=== PATIENT | male | born 1945 | race Caucasian/White ===

== ENCOUNTER → 2018-05-29 | Outpatient (CLI) | payer MEDICARE, BC ==
[~2018-05-29] MED LIST: ALLERGY RELIEF25 M2 PO; AUGMENTIN XR 101 TER PO; RT ADVAIR 228 DISKUS IH
== END ==
LOC: COL.RAD 07:53
DX: J32.9 Chronic sinusitis, unspecified (principal); Z98.890 Other specified postprocedural states

== ENCOUNTER → 2018-09-08 | Outpatient (CLI) | payer MEDICARE, BC | LOC: COL.PUL 07:54 | DX: R06.09 Other forms of dyspnea (principal) ==

== ENCOUNTER → 2018-09-17 | Outpatient (CLI) | payer MEDICARE, BC ==
[~2018-09-17] VITALS: Ht 174 cm; Wt 132.5 kg
[~2018-09-17] MED LIST changes: +ATROVENT INHALE14 GM IH; +PRINIVIL20 MG PO
[2018-09-17 08:58] VITALS: BP 158/75; PULSE 86
[2018-09-17 10:20] VITALS: BP 147/87; PULSE 91
[2018-09-17 10:33] LABS: PLEURAL FLUID RBC 159000 /mm3 (0-0); PLEURAL FLUID WBC 16825 /mm3
[2018-09-17 10:41] LABS: GLUCOSE,PLEURAL FLUID 91 mg/dL; TOTAL PROTEIN,PLEURAL FLUID 5.4 gm/dL
--- NOTE | 2018-09-17 10:44 | NUR ---
PT WAS TAKEN OUT AT 1036 AMBULATORY TO PO. STATES THAT HIS LUNG IS SOMEWHAT TENDER WHEN HE COUGHS. PT INSTRUCTED TO FOLLOW HIS DC INSTRUCTIONS. AKSED PT IF HE NEEDED ME TO GO OVER THE INSTRAUCTIONS AGAIN. HE STATES NO.
[2018-09-17 11:01] LABS: PLEURAL FLUID COLOR RED
[2018-09-17 11:02] LABS: PLEURAL FLUID APPEARANCE CLOUDY
== END ==
LOC: COL.RAD 08:41
PROVIDERS: Internal Medicine Pulmonary Disease
DX: J90 Pleural effusion, not elsewhere classified (principal)

== ENCOUNTER 2019-05-24 20:10 | Emergency (ER) | payer MEDICARE, BC ==
[~2019-05-24] VITALS: Ht 172.7 cm; Wt 136.4 kg
[2019-05-24 20:15] VITALS: TEMP 98.4
[2019-05-24 21:13] LABS: BASO # 0.1 (0.0-0.2); BASO % 0.5 % (0.0-2.0); EOS # 0.7 (0.0-0.7); EOS % 5.9 % (0-4.0); GRAN # 7.4 (1.4-6.5); GRAN % 67.3 % (42.2-75.2); HEMATOCRIT 42.7 % (42.0-52.0); HEMOGLOBIN 13.2 g/dl (13.5-18.0); LYMPH # 1.8 (1.2-3.4); LYMPH % 16.7 % (20.0-51.0); MEAN CELL VOLUME 87 fl (80.0-100.0); MEAN CORPUSCULAR HEMOGLOBIN 27 pg (27.0-31.0); MEAN CORPUSCULAR HGB CONC 31 g/dl (33.0-37.0); MEAN PLATELET VOLUME 9.5 fl (7.4-10.4); MONO % 9.1 % (1.7-9.3); PLATELET COUNT 257 K/mm3 (130-400); RED BLOOD COUNT 4.89 M/mm3 (4.20-5.60); REDCELL DISTRIBUTION WIDTH-CV 13.1 % (11.5-14.5)
[2019-05-24 21:30] LABS: ALBUMIN 4.2 gm/dL (3.5-5.0); BILIRUBIN,TOTAL 0.2 mg/dL (0.0-1.0); C-REACTIVE PROTEIN 0.6 mg/dL (0.0-0.9); CREATININE, serum 0.94 (0.66-1.25); POTASSIUM 3.8 mmol/L (3.4-5.0); TOTAL PROTEIN 7.6 gm/dL (6.4-8.2)
[2019-05-24 21:40] LABS: COLLECTION METHOD CLEAN CATCH
[2019-05-24 21:56] LABS: MUCOUS Present /lpf; PH 5 (5-8); SQUAMOUS EPITHELIAL None Seen /hpf; URINE APPEARANCE Cloudy; URINE BACTERIA None Seen /hpf; URINE BILIRUBIN Negative (NEGATIVE); URINE BLOOD 3+ (NEGATIVE); URINE COLOR Yellow; URINE GLUCOSE Negative (NEGATIVE); URINE KETONE Negative (NEGATIVE); URINE LEUKOCYTE ESTERASE Negative (NEGATIVE); URINE NITRATE Negative (NEGATIVE); URINE PROTEIN(semi-quant) Negative (NEGATIVE); URINE RBC >50 /hpf; URINE UROBILINOGEN Negative (NEGATIVE)
[2019-05-24] MEDS ORDERED: NORCO 325 MG-51 TAB PO (22:15)
[2019-05-24] MEDS ORDERED: CEFTIN500 MG PO (22:15)
[2019-05-24] MEDS ORDERED: ZOFRAN ODT4 MG PO (22:21)
[2019-05-24 22:57] VITALS: BP 126/68; PULSE 75
== END 2019-05-24 23:05 | disposition home or self-care (01) ==
LOC: COL.ER 20:10
PROVIDERS: Emergency Medicine
DX: N20.2 Calculus of kidney with calculus of ureter (principal); I10 Essential (primary) hypertension; J45.909 Unspecified asthma, uncomplicated; Z88.8 Allergy status to other drugs, medicaments and biological substances; Z98.890 Other specified postprocedural states
CPT/HCPCS: A4216; J0696; J1885; J2405; J3010; J7030; Q9967

== ENCOUNTER 2019-06-02 14:32 | Day surgery (SDC) | payer MEDICARE, BC ==
[~2019-06-02] VITALS: Ht 172.7 cm; Wt 143.4 kg
[~2019-06-02 14:32] MED LIST changes: +CEFTIN500 MG PO; +NORCO 325 MG-51 TAB PO; +ZOFRAN ODT4 MG PO
[2019-06-02 15:14] VITALS: BP 154/81; PULSE 70; TEMP 98.1
[2019-06-02] MEDS ORDERED: FLONASE NASAL S16 GM NS (15:31)
[2019-06-02] MEDS ORDERED: SINGULAIR 110 MG/TAB PO (17:00)
[2019-06-02] MEDS ORDERED: ALBUTEROL0.83 MG/ML IH (17:04)
[2019-06-02 18:01] VITALS: BP 143/70; PULSE 63; TEMP 98
[2019-06-02 18:04] VITALS: TEMP 97.4
[2019-06-02 18:16] VITALS: BP 143/70; PULSE 63
[2019-06-02 18:31] VITALS: BP 135/71; PULSE 86
--- NOTE | 2019-06-02 19:18 | NUR ---
PATIENT RETURNED FROM PACU INTO BAY#8. A/OX3. DENIES PAIN, DOES C/O 'SOME DISCOMFORT' IN OPERATIVE REGION. UP TO AMBULATE X1 ASSIST, VOICED SOME AMOUNT OF PINK/RED TINGED URINE. NO CLOTS NOTED. PT STATES, 'IT RAND TO URINATE' EXPLAINED THAT THIS WOULD BE NORMAL FOR A FEW DAYS. LUNGS CLEAR, HYPOACTIVE PARTICULARLY IN THE UPPER LEFT QUADRANT. DENIES SHORTNESS OF BREATH. SATS ARE WITHIN NORMAL LIMITS. HRR, BOWEL SOUNDS PRESENT. REQUESTS VANILLA PUDDING AND ORANGE JUICE TO DRINK. PT AT BEDSIDE. CALL LIGHT IN REACH. WILL CONT TO MONITOR.
--- NOTE | 2019-06-02 19:25 | NUR ---
PT CONTINUES TO DENY PAIN, NAUSEA. STATES DISCOMFORT IN SURGICAL AREA. UP TO URINATE FOR THE SECOND TIME. CONT TO STATE BURNING WITH URINATION. URINE PINK TINGED. VOIDS WITHOUT DIFFICULTY. TOLERATES FOOD AND FLUID. IV DC'D PER LEFT FOREARM WITHOUT DIFFICULTY. WILL CONT TO MONITOR PROGRESS.
--- NOTE | 2019-06-02 19:28 | NUR ---
PT UP TO BATHROOM FOR 3RD TIME, TOLERATING ACTIVITY. AMBULATING INDEPENDENTLY. VOIDING WITHOUT DIFFICULTY, CONT TO STATE THAT, 'RAND WITH URINATION'. REINTERATED THAT THE BURNING AND DISCOMFORT WILL BE NORMAL FOR A FEW DAYS AND TO TAKE PAIN MEDICATION NEEDED AND DIRECTED. DISCHARGE INSTRUCTIONS GIVEN TO PATIENT AND , TRIPP. THEY BOTH VOICE UNDERSTANDING. ASSISTED PATIENT WITH DRESSING, TOLERATING ACTIVITY WELL WITHOUT PAIN OR NAUSEA. PT DISCHARGED PER WC TO FAMILY VEHICLE, DRIVING.
== END 2019-06-02 18:35 | disposition home or self-care (01) ==
LOC: SDCO 14:32
DX: N13.2 Hydronephrosis with renal and ureteral calculous obstruction (principal); D64.9 Anemia, unspecified; J45.909 Unspecified asthma, uncomplicated; I10 Essential (primary) hypertension; E23.0 Hypopituitarism; G47.33 Obstructive sleep apnea (adult) (pediatric); B35.1 Tinea unguium; Z98.52 Vasectomy status; Z88.1 Allergy status to other antibiotic agents; Z88.8 Allergy status to other drugs, medicaments and biological substances; Z80.3 Family history of malignant neoplasm of breast; Z83.3 Family history of diabetes mellitus; Z82.49 Family history of ischemic heart disease and other diseases of the circulatory system; Z80.1 Family history of malignant neoplasm of trachea, bronchus and lung
CPT/HCPCS: C1769; C2617; J0690; J1100; J2405; J2704; J3010; J7120; Q9967